=== PATIENT | female | born 1965 | race Caucasian/White ===

== ENCOUNTER → 2020-09-10 07:48 | Outpatient (CLI) | payer BC, SELFPAY ==
[2020-09-10] MEDS: COVID-19 VACC #1, MRNA(MOD) 100 MCG/0.5 ML VIAL IM (07:56)
== END ==
PROVIDERS: Visit Provider Internal Medicine
DX: Z23 Encounter for immunization (principal)
CPT/HCPCS: 0011A; 91301

== ENCOUNTER → 2020-10-08 08:16 | Outpatient (CLI) | payer BC, SELFPAY ==
[2020-10-08] MEDS: COVID-19 VACC #2, MRNA(MOD) 100 MCG/0.5 ML VIAL IM (08:20)
== END ==
PROVIDERS: Visit Provider Internal Medicine
DX: Z23 Encounter for immunization (principal)
CPT/HCPCS: 0012A; 91301